=== PATIENT | male | born 1975 | race Caucasian/White ===

== ENCOUNTER → 2023-05-24 15:26 | Outpatient (BNVA) | payer MEDICAID, SELFPAY | PROVIDERS: Visit Provider Nurse Practitioner Family | DX: R50.9 Fever, unspecified (principal) | CPT/HCPCS: 87400; 87426 ==

== ENCOUNTER → 2024-01-22 12:11 | Outpatient (BNVA) | payer MEDICAID, SELFPAY | PROVIDERS: Visit Provider Nurse Practitioner Family | DX: R51.9 Headache, unspecified (principal) | CPT/HCPCS: 87426 ==

== ENCOUNTER → 2024-05-27 09:10 | Outpatient (BNVA) | payer OTHER, SELFPAY | PROVIDERS: Visit Provider Psychiatry & Neurology Psychiatry | DX: F33.2 Major depressive disorder, recurrent severe without psychotic features (principal) | CPT/HCPCS: 80061; 83036 ==

== ENCOUNTER → 2025-04-23 12:46 | Outpatient (BNVA) | payer MEDICAID, SELFPAY ==
[2024-05-29 10:45] VITALS: BP 149/76; BMI 62.0
== END ==
PROVIDERS: PCP Family Medicine; Visit Provider Family Medicine
DX: I10 Essential (primary) hypertension (principal); E11.9 Type 2 diabetes mellitus without complications
CPT/HCPCS: 80053; 80061; 83036; 84439; 84443; 85025

== ENCOUNTER 2025-05-04 14:14 | Outpatient (CLI) | payer MEDICAID, SELFPAY ==
[2024-05-29 10:45] VITALS: BP 149/76; BMI 62.0
--- NOTE | 2025-05-04 17:15 | USR_ITS ---
PROCEDURE INFORMATION: Exam: US Scrotum and US Duplex Artery and Vein, Scrotum, Complete Exam date and time: 05/04/2025 3:23 PM Age: 49 years old Clinical indication: Scrotum pain; Additional info: R testicular pain TECHNIQUE: Imaging protocol: Real-time ultrasound of the scrotum. Real-time duplex ultrasound scan of the arterial and venous flow of the scrotum with B-mode, color Doppler flow and spectral waveform analysis. Complete exam. Duplex exam was performed to evaluate for torsion and other vascular conditions. COMPARISON: No relevant prior studies available. FINDINGS: Right testicle: The right testicle measures 2.2 x 2.0 x 1.7 cm with a volume of 4 mL. Confirmed right testicular blood flow. Normal arterial inflow and spectral sonography. Peak systolic velocity of 2.7 cm/sec on spectral sonography within RI of 0.73. Confirmed right testicle blood flow. Normal venous outflow and spectral sonography. No mass. Left testicle: The left testicle measures 2.0 x 1.6 x 2.6 cm with a volume of 4 mL. Confirmed left testicular blood flow. Normal arterial inflow on spectral sonography. Confirmed left testicle blood flow. Normal venous outflow on spectral sonography. Peak systolic velocity of 2.1 cm/sec with a RI of 0.76. No mass. Epididymides: Of the right epididymis measures 0.6 x 1.1 x 0.6 cm. A 4 mm right epididymal head simple cyst is present. Extratesticular spaces: No varicoceles. No hydroceles. Scrotum/soft tissues: Normal. Other findings: Button Tufter reports technically difficult evaluation with a limited sonographic window secondary to patient body habitus and limited ability to obtain proper patient positioning. Findings are subsequently within these limitations. No evidence of testicular hyperemia to suggest orchitis. US/US scrotum [id number] IMPRESSION: 1. A 4 mm right epididymal head simple cyst is present. Otherwise, no sonographic abnormality of the testicles. 2. Normal arterial blood flow confirmed to both testicles. No evidence of torsion. 3. Normal venous blood flow confirmed in both testicles. No evidence of torsion.
== END 2025-05-04 14:15 | disposition home or self-care (01) ==
LOC: RAD 14:16
PROVIDERS: PCP Family Medicine; Visit Provider Family Medicine
DX: N50.811 Right testicular pain (principal); N50.3 Cyst of epididymis
CPT/HCPCS: 76870